=== PATIENT | female | born 1965 | race African-American/Black ===

== ENCOUNTER 2017-07-17 07:49 | Emergency (ER) | payer OTHER ==
[2017-07-17 09:53] LABS: URINE BLOOD (Dip) POC Trace-intact (NEGATIVE); URINE GLUCOSE (Dip) POC Negative (NEGATIVE); URINE KETONES (Dip) POC Negative (NEGATIVE); URINE LEUKOCYTE EST (Dip) POC Negative (NEGATIVE); URINE NITRITE (Dip) POC Negative (NEGATIVE); URINE TOTAL PROTEIN POC Negative (NEGATIVE)
== END 2017-07-17 10:35 | disposition home or self-care (01) ==
LOC: FTE 07:49
DX: M54.9 Dorsalgia, unspecified (principal)
CPT/HCPCS: 71045; 81003; 99283-25